=== PATIENT | male | born 1990 | race Caucasian/White ===

== ENCOUNTER 2023-10-10 02:44 | Emergency (ER) | payer OTHER ==
[~2023-10-10] VITALS: Ht 172.7 cm; Wt 71.8 kg
[2023-10-10 02:52] VITALS: BP 131/114; PULSE 93; RESP 16; TEMP 98.6; O2SAT 100
== END 2023-10-10 03:59 ==
LOC: ER 02:45
DX: Z04.1 Encounter for examination and observation following transport accident (principal); Z91.030 Bee allergy status; V49.88XA Car occupant (driver) (passenger) injured in other specified transport accidents, initial encounter; Y93.89 Activity, other specified; Y92.89 Other specified places as the place of occurrence of the external cause; Y99.8 Other external cause status
CPT/HCPCS: 99283